=== PATIENT | male | born 1965 | race Caucasian/White ===

== ENCOUNTER 2016-05-08 21:15 | Emergency (ER) | payer OTHER ==
[~2016-05-08] VITALS: Ht 185.4 cm; Wt 121.7 kg
[~2016-05-08 21:15] MED LIST: AZIT250T81 PO; BC POWDER; CPR500T PO; GFCD10B GT; ONDAN4ODT PO; PRED20TA PO; [UNRECOGNIZED DRUG - REMARK]
[2016-05-08] MEDS ORDERED: SODIUM CHLORIDE FLUSH 3 ML SYR IV PRN (21:50)
[2016-05-08] MEDS ORDERED: SODIUM CHLORIDE FLUSH 10 ML SYR IV PRN (21:50)
[2016-05-08 22:16] LABS: BASOPHILS % (AUTO) 1 % (0-2); EOSINOPHILS # (AUTO) 0.4 10^3uL; EOSINOPHILS % (AUTO) 5 % (0-4); LYMPHOCYTES # (AUTO) 2.7 X10^3; MEAN CORPUSCULAR HEMOGLOBIN 28.1 PG (26.0-34.0); MEAN CORPUSCULAR HGB CONC 33.5 g/dL (31.0-37.0); MEAN CORPUSCULAR VOLUME 84 FL (80-100); MEAN PLATELET VOLUME 10.8 FL (6.0-9.5); MONOCYTES # (AUTO) 0.8 X10^3; MONOCYTES % (AUTO) 10 % (3-11); NEUTROPHILS # (AUTO) 4.1 X10^3; NEUTROPHILS % (AUTO) 51 % (51-67); PLATELET COUNT 323 10^3uL (150-450); WHITE BLOOD COUNT 8.06 10^3uL (4.0-11.0)
[2016-05-08 22:25] LABS: ALBUMIN 4.4 g/dL (3.4-5.0); ALKALINE PHOSPHATASE 74 U/L (38-126); ANION GAP 16.7 MEQ/L (3-15); BUN/CREATININE RATIO 13 (10-20); CALCULATED IONIZED CALCIUM 4.4 mg/dL (3.8-4.6); CREATINE KINASE 158 U/L (55-170)
[2016-05-08] MEDS ORDERED: HYDROcodone/APAP 5 MG/325 MG (NORCO) TAB PO ONE (23:35)
[2016-05-09 00:11] VITALS: BP 133/91
--- NOTE | 2016-05-09 07:27 | Diagnostic Imaging Report ---
EXAMINATION: Chest radiograph, portable AP view. DATE: May 08, 2016 at 2214 hours. INDICATION: 51-year-old male, left posterior back pain. COMPARISON: November 27, 2015. FINDINGS: Stable overall appearance of the cardiomediastinal silhouette. There is no identified pneumothorax. There is no large pleural effusion. There is no identified focal airspace consolidation. IMPRESSION: No identified acute cardiopulmonary abnormality. Dictated by: Dictated on workstation # [id number]
== END 2016-05-09 00:13 | disposition home or self-care (01) ==
LOC: ED 21:19
DX: M54.2 Cervicalgia (principal); R68.84 Jaw pain; N28.9 Disorder of kidney and ureter, unspecified
CPT/HCPCS: 36415; 71010; 80053; 82550; 82553; 84484; 85025; 85610; 85730; 93005; 93010; 99285

== ENCOUNTER → 2016-06-28 | Outpatient (CLI) | payer OTHER | LOC: RAD 10:20 | PROVIDERS: ATTEND Family Medicine | DX: E01.0 Iodine-deficiency related diffuse (endemic) goiter (principal) | CPT/HCPCS: 70491; Q9967 ==